=== PATIENT | male | born 1970 | race Hispanic/Latino ===

== ENCOUNTER 2018-04-26 13:32 | Emergency (ER) | payer BC ==
--- NOTE | 2018-04-26 14:19 | ED PDOC ---
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 Patient states numbness radiates down the neck, and today was more frequent and associated with dizziness described as lightheadedness which prompted concern for ED visit. Patient states dizziness has improved and denies any pain, left arm weakness or numbness, headache, ear pain, abdominal pain, difficulty walking or other medical complaints. Patient further states he is no longer being treated for Leukemia. PMD: Unknown. Pt is from [place]. NIHSS Stroke Scale - Date/Time Evaluation Performed Date Performed: 04/26/18 Time Performed: 14:00 When Was NIHSS Performed: Baseline - How Severe is the Stroke Level of Consciousness: 0=Alert LOC to Questions: 0=Both comments correct LOC to commands: 0=Obeys both correctly Best Gaze: 0=Normal Visual: 0=No visual loss Facial: 0=Normal Motor Arm - Left: 0=No drift Motor Arm - Right: 0=No drift Motor Leg - Left: 0=No drift Motor Leg - Right: 0=No drift Limb Ataxia: 0=Absent Sensory: 0=Normal Best Language: 0=No aphasia Dysarthia: 0=Normal articulation Extinction & Inattention (Neglect): 0=Normal, no object Score: 0 rTPA Inclusion/Exclusion - Refusal of Treatment Patient Refused Treatment: No - Inclusion Criteria for Altepase Patient is 18 years or Older: Yes The Clinical Diagnosis of Ischemic Stroke That is Causing a Potentially Disabling Neurological Deficit: No Time of Onset is Well Established to be Less Than 270 Minute Before Treatment Would Begin: No Risk/Benefit Discussed With Patient/Family Member Present: No Past Medical History Reviewed: Historical Data, Nursing Documentation, Vital Signs Vital Signs: Last Vital Signs Temp 98.2 F 04/26/18 13:34 Pulse 91 H 04/26/18 13:34 Resp 20 04/26/18 13:34 BP 127/87 04/26/18 13:34 Pulse Ox 96 04/26/18 13:34 - Medical History Other PMH: Hou's palsy, Leukemia - Surgical History Surgical History: No Surg Hx - Family History Family History: States: Unknown Family Hx - Home Medications Home Medications: Ambulatory Orders Medication Instructions Recorded Gabapentin [Neurontin] 300 mg PO HS #10 cap 04/26/18 - Allergies Allergies/Adverse Reactions: Allergies Allergy/AdvReac Type Severity Reaction Status Date / Time hydromorphone [From Dilaudid] Allergy VOMITING Verified 04/26/18 13:34 Review of Systems ROS Statement: Except As Marked, All Systems Reviewed And Found Negative ENT: Negative for: Ear Pain Gastrointestinal: Negative for: Abdominal Pain Musculoskeletal: Negative for: Arm Pain Neurological: Positive for: Numbness (left lower facial), Dizziness. Negative for: Weakness, Headache Physical Exam - Reviewed Nursing Documentation Reviewed: Yes Vital Signs Reviewed: Yes - Physical Exam Appears: Positive for: No Acute Distress Head Exam: Positive for: ATRAUMATIC, NORMAL INSPECTION, NORMOCEPHALIC Skin: Positive for: Normal Color, Warm, Dry Eye Exam: Positive for: Normal appearance, EOMI, PERRL ENT: Positive for: Normal ENT Inspection Neck: Positive for: Painless ROM Cardiovascular/Chest: Positive for: Regular Rate, Rhythm. Negative for: Murmur Respiratory: Positive for: Normal Breath Sounds. Negative for: Respiratory Distress Gastrointestinal/Abdominal: Positive for: Normal Exam, Soft. Negative for: Tenderness Back: Positive for: Normal Inspection Extremity: Positive for: Normal ROM (upper and lower extremities). Negative for : Deformity, Swelling Neurologic/Psych: Positive for: Alert, public speaker II-XII (intact), Oriented (x3), Cerebellar Tests (normal), Gait (steady). Negative for: Motor/Sensory Deficits (no focal deficits), Aphasia, Facial Droop - Laboratory Results Result Diagrams: 04/26/18 15:56 04/26/18 15:56 - ECG O2 Sat by Pulse Oximetry: 96 (RA) Pulse Ox Interpretation: Normal Medical Decision Making Medical Decision Making: Time: 14:15 Initial Impression: left facial paresthesia Differential includes: Neuropathy trigeminal, [place] palsy, TIA and posterior cerebral circulation deficiency. Initial Plan: --Head w/o contrast [CT] --EKG --BMP --Drug screen, urine --Troponin I --CBC w/ differential --PTT --PT --Reevaluation EKG: NSR, normal QRS, no ST changes. Rate @ [address] bpm[address] 14:[address] FINDINGS: HEMORRHAGE: No intracranial hemorrhage. BRAIN: No mass effect or edema. No atrophy or chronic microvascular ischemic changes. VENTRICLES: Unremarkable. No hydrocephalus. CALVARIUM: Unremarkable. PARANASAL SINUSES: Unremarkable as visualized. No significant inflammatory changes. MASTOID AIR CELLS: Unremarkable as visualized. No inflammatory changes. OTHER FINDINGS: None. IMPRESSION: No intracranial hemorrhage or mass effect. 1710 Discussed the case and findings with Dr Mays who recommends CT angio head/ neck 1720 Patient denies any symptoms at this time. 18:37 Head/Neck CTA FINDINGS: HEAD: Right: The intracranial internal carotid artery, and anterior and middle cerebral arteries are widely patent. The A1 segment is hypoplastic, an anatomic variant. Left: The intracranial internal carotid artery, and anterior and middle cerebral arteries are widely patent. Posterior circulation: The visualized intracranial vertebral arteries, basilar artery and posterior cerebral arteries are widely patent. There is no endoluminal filling defect to suggest thrombus. There is no intracranial saccular aneurysm. There is no abnormal enhancement on the postcontrast CT. NECK: There is a three vessel aortic arch. There is no stenosis at the origins of the great vessels at the level of the aortic arch. Right Carotid: On the right, the common carotid, internal carotid and external carotid arteries are widely patent. There is no hemodynamically significant stenosis in the internal carotid artery by NASCET criteria. Left Carotid: On the left, the common carotid, internal carotid and external carotid arteries are widely patent.There is no hemodynamically significant stenosis in the internal carotid arteries. There is no hemodynamically significant stenosis in the internal carotid artery by NASCET criteria. The vertebral arteries are widely patent. The right vertebral artery is hypoplastic, an anatomic variant. The visualized soft tissues of the neck are normal. The visualized brain and cervical spine are within normal limits. The lung apices are clear. IMPRESSION: 1. No evidence of endoluminal thrombus,occlusion or definite significant stenosis in the intracranial arteries. 2. No evidence of hemodynamically significant stenosis in the internal carotid arteries. 3. Patent bilateral vertebral arteries. ----- Scribe Attestation: Documented by Perry Bob, acting as a scribe for Joann Curry MD. Provider Scribe Attestation: All medical record entries made by the Scribe were at my direction and personally dictated by me. I have reviewed the chart and agree that the record accurately reflects my personal performance of the history, physical exam, medical decision making, and the department course for this patient. I have also personally directed, reviewed, and agree with the discharge instructions and disposition. Disposition - Clinical Impression Clinical Impression: Paresthesia - Patient ED Disposition Is Patient to be Admitted: No Doctor Will See Patient In The: Office Counseled Patient/Family Regarding: Studies Performed, Diagnosis, Need For Followup - Disposition Referrals: Julien Mays MD [Medical Doctor] - Disposition: Routine/Home Disposition Time: 19:00 Condition: GOOD Additional Instructions: Return for worsening. Follow up with your PCP in 2-3 days. SIVA STEELE, thank you for letting us take care of you today. Your provider was Joann Curry MD and you were treated for LEFT SIDE NUMBNESS. The emergency medical care you received today was directed at your acute symptoms. If you were prescribed any medication, please fill it and take as directed. It may take several days for your symptoms to resolve. Return to the Emergency Department if your symptoms worsen, do not improve, or if you have any other problems. Please contact your doctor or call one of the physicians/clinics you have been referred to that are listed on the Patient Visit Information form that is included in your discharge packet. Bring any paperwork you were given at discharge with you along with any medications you are taking to your follow up visit. Our treatment cannot replace ongoing medical care by a primary care provider outside of the emergency department. Thank you for allowing the [facility] team to be part of your care today. If you had an X-Ray or CT scan: A Radiologist will review the ED reading if any change in treatment is needed we will contact you. If you had a blood, urine, or wound culture: It will take several days for the results, if any change in treatment is needed we will contact you. If you had an STI test: It will take 48 hours for the results. Please call after 1 week if you have not heard back. Prescriptions: Gabapentin [Neurontin] 300 mg PO HS #10 cap Instructions: Paresthesias (DC)
--- NOTE | 2018-04-26 14:55 | CT ---
Date of service: 04/26/2018 PROCEDURE: CT HEAD WITHOUT CONTRAST. HISTORY: dizziness facial numbness COMPARISON: None available. TECHNIQUE: Axial computed tomography images were obtained through the head/brain without intravenous contrast. Radiation dose: Total exam DLP = 810 mGy-cm. This CT exam was performed using one or more of the following dose reduction techniques: Automated exposure control, adjustment of the mA and/or kV according to patient size, and/or use of iterative reconstruction technique. FINDINGS: HEMORRHAGE: No intracranial hemorrhage. BRAIN: No mass effect or edema. No atrophy or chronic microvascular ischemic changes. VENTRICLES: Unremarkable. No hydrocephalus. CALVARIUM: Unremarkable. PARANASAL SINUSES: Unremarkable as visualized. No significant inflammatory changes. MASTOID AIR CELLS: Unremarkable as visualized. No inflammatory changes. OTHER FINDINGS: None. IMPRESSION: No intracranial hemorrhage or mass effect.
[2018-04-26 16:02] LABS: BASO # 0.1 K/uL (0.0-0.2); BASO % 1.1 % (0.0-2.0); EOS # 0.1 K/uL (0.0-0.7); EOS % 2.1 % (0.0-4.0); HEMOGLOBIN 14.2 g/dL (12.0-18.0); LYMPH # 3.2 K/uL (1.0-4.3); LYMPH % 45.4 % (20.0-40.0); MEAN CELL VOLUME 92.5 fl (80.0-94.0); MEAN CORPUSCULAR HEMOGLOBIN 31.5 pg (27.0-31.0); MEAN PLATELET VOLUME 9.7 fl (7.2-11.7); MONO # 0.6 K/uL (0.0-0.8); NEUT # 3.1 K/uL (1.8-7.0); NEUT % 43.4 % (50.0-75.0); NRBC % 0.2 % (0.0-0.0); RBC 4.53 Mil/uL (4.40-5.90); RED CELL DISTRIBUTION WIDTH 13.5 % (11.5-14.5); WHITE BLOOD COUNT 7.1 K/uL (4.8-10.8)
[2018-04-26 16:15] LABS: PROTHROMBIN TIME 10.9 Seconds (9.8-13.1)
[2018-04-26 16:18] LABS: PARTIAL THROMBOPLASTIN TIME 31.5 Seconds (25.6-37.1)
[2018-04-26 16:33] LABS: BLOOD UREA NITROGEN 19 mg/dl (9-20); CALCIUM 9.6 mg/dL (8.4-10.2); GFR AFRICAN-AMERICAN > 60; GFR NON-AFRICAN AMERICAN > 60
[2018-04-26 16:51] LABS: BARBITURATES, UR NEGATIVE (NEGATIVE); BENZODIAZEPINES, UR NEGATIVE (NEGATIVE); OPIATES, UR NEGATIVE (NEGATIVE); PHENCYCLIDINE, UR NEGATIVE (NEGATIVE)
--- NOTE | 2018-04-26 17:05 | CARD ---
APPROVED REPORT Date of service: 04/26/2018 EKG Measurement Heart [id number] <Conclusion> Normal sinus rhythm Possible Inferior infarct, age undetermined Abnormal ECG
[2018-04-26] MEDS ORDERED: Sodium Chloride 0.9% 50 ML IV ONE (17:51)
[2018-04-26] MEDS ORDERED: Iodixanol 320 MG/ML 100 ML BOTTLE IV ONE (17:51)
--- NOTE | 2018-04-26 18:38 | CT ---
PROCEDURE: CTA HEAD AND NECK WITH CONTRAST HISTORY: Left facial numbness and dizziness COMPARISON: None available. TECHNIQUE: Initial noncontrast head CT was performed. Subsequently, CT angiogram of the head and neck were performed after the intravenous administration of 80 mL of Omnipaque 350. Contiguous 1.5mm thick images were obtained in the axial plane of the neck. 2-D coronal and sagittal MPR images were obtained. Imaging postprocessing was performed with 3-D images also obtained. A delayed contrast head CT was also obtained. This CT exam was performed using one or more of the following dose reduction techniques: Automated exposure control, adjustment of the mA and/or kV according to patient size, and/or use of iterative reconstruction technique. Contrast dose: 90 mL Visipaque 320 Radiation dose: Total exam DLP = 462.45 mGy-cm. FINDINGS: HEAD: Right: The intracranial internal carotid artery, and anterior and middle cerebral arteries are widely patent. The A1 segment is hypoplastic, an anatomic variant. Left: The intracranial internal carotid artery, and anterior and middle cerebral arteries are widely patent. Posterior circulation: The visualized intracranial vertebral arteries, basilar artery and posterior cerebral arteries are widely patent. There is no endoluminal filling defect to suggest thrombus. There is no intracranial saccular aneurysm. There is no abnormal enhancement on the postcontrast CT. NECK: There is a three vessel aortic arch. There is no stenosis at the origins of the great vessels at the level of the aortic arch. Right Carotid: On the right, the common carotid, internal carotid and external carotid arteries are widely patent. There is no hemodynamically significant stenosis in the internal carotid artery by NASCET criteria. Left Carotid: On the left, the common carotid, internal carotid and external carotid arteries are widely patent.There is no hemodynamically significant stenosis in the internal carotid arteries. There is no hemodynamically significant stenosis in the internal carotid artery by NASCET criteria. The vertebral arteries are widely patent. The right vertebral artery is hypoplastic, an anatomic variant. The visualized soft tissues of the neck are normal. The visualized brain and cervical spine are within normal limits. The lung apices are clear. IMPRESSION: 1. No evidence of endoluminal thrombus,occlusion or definite significant stenosis in the intracranial arteries. 2. No evidence of hemodynamically significant stenosis in the internal carotid arteries. 3. Patent bilateral vertebral arteries.
[2018-04-26 19:30] VITALS: BP 122/90; PULSE 76; RESP 13; TEMP 98.4
--- NOTE | 2018-04-27 00:56 | CP.PCM.CON ---
History of Present Illness - History of Present Illness History of Present Illness: Neurology Consultation Note: Mr. Garcia is a 48-year-old man with a past medical history of AML (in remission), right side Hou's Palsy, who presented to the ED complaining of left facial and neck numbness that is intermittent. Currently, he is asymptomatic. CT and CTA of the head/neck were normal. Review of Systems - Review of Systems All systems: reviewed and no additional remarkable complaints except Past Patient History - Past Social History Smoking Status: Never Smoked - NEUROLOGICAL Hx Neurological Disorder: Yes Other/Comment: hou's palsy - HEMATOLOGICAL/ONCOLOGICAL Hx Blood Disorders: Yes Hx Leukemia: Yes - PSYCHIATRIC Hx Substance Use: No - SURGICAL HISTORY Hx Surgeries: No Meds Home Medications: Home Medication List Medication Instructions Recorded Confirmed Type Gabapentin [Neurontin] 300 mg PO HS #10 cap 04/26/18 Rx Allergies/Adverse Reactions: Allergies Allergy/AdvReac Type Severity Reaction Status Date / Time hydromorphone [From Dilaudid] Allergy VOMITING Verified 04/26/18 13:34 Physical Exam - Neurological Exam Neurological exam: Alert, CN II-XII Intact, Normal Gait, Oriented x3, Reflexes Normal Results - Vital Signs Recent Vital Signs: Last Vital Signs Temp 98.4 F 04/26/18 19:29 Pulse 76 04/26/18 19:29 Resp 13 04/26/18 19:29 BP 122/90 04/26/18 19:29 Pulse Ox 98 04/26/18 19:29 - Labs Result Diagrams: 04/26/18 15:56 04/26/18 15:56 Labs: Laboratory Results - last 24 hr 04/26/18 04/26/18 04/26/18 15:56 15:56 15:56 WBC 7.1 RBC 4.53 Hgb 14.2 Hct 41.9 MCV 92.5 MCH 31.5 H MCHC 34.0 RDW 13.5 Plt Count 213 MPV 9.7 Neut % (Auto) 43.4 L Lymph % (Auto) 45.4 H [place] % (Auto) 8.0 Eos % (Auto) 2.1 Baso % (Auto) 1.1 Neut # (Auto) 3.1 Lymph # (Auto) 3.2 [place] # (Auto) 0.6 Eos # (Auto) 0.1 Baso # (Auto) 0.1 PT 10.9 INR 1.0 APTT 31.5 Sodium 140 Potassium 4.4 Chloride 100 Carbon Dioxide 27 Anion Gap 17 BUN 19 Creatinine 0.8 Est GFR ( Amer) > 60 Est GFR (Non-Af Amer) > 60 Random Glucose 100 Calcium 9.6 Troponin I < 0.0120 Urine Opiates Screen Urine Methadone Screen Ur Barbiturates Screen Ur Phencyclidine Scrn Ur Amphetamines Screen U Benzodiazepines Scrn U Oth Cocaine Metabols U Cannabinoids Screen 04/26/18 15:56 WBC RBC Hgb Hct MCV MCH MCHC RDW Plt Count MPV Neut % (Auto) Lymph % (Auto) [place] % (Auto) Eos % (Auto) Baso % (Auto) Neut # (Auto) Lymph # (Auto) [place] # (Auto) Eos # (Auto) Baso # (Auto) PT INR APTT Sodium Potassium Chloride Carbon Dioxide Anion Gap BUN Creatinine Est GFR ( Amer) Est GFR (Non-Af Amer) Random Glucose Calcium Troponin I Urine Opiates Screen Negative Urine Methadone Screen Negative Ur Barbiturates Screen Negative Ur Phencyclidine Scrn Negative Ur Amphetamines Screen Negative U Benzodiazepines Scrn Negative U Oth Cocaine Metabols Negative U Cannabinoids Screen Negative Assessment & Plan (1) Paresthesia Assessment and Plan: Source and underlying cause are unknown. Based on the sudden onset of tingling of the V3 division of the trigeminal nerve, he may have trigeminal neuralgia. Early Hou's Palsy is also possible. The patient is asymptomatic now. I recommend gabapentin 300 mg TID, if the symptoms are disturbing. Otherwise, if symptoms persist, or return, consider MRI of the brain without contrast. Thank you. Status: Acute
[2018-04-27 20:39] VITALS: O2SAT 96
== END 2018-04-26 19:17 | disposition home or self-care (01) ==
LOC: H.ER 13:32
DX: G51.0 Bell's palsy (principal)
CPT/HCPCS: 70450; 70496; 70498; 80048; 84484; 85025; 85610; 85730; 93005; 99283; G0480; Q9967